=== PATIENT | female | born 1990 | race African-American/Black ===

== ENCOUNTER 2016-12-03 18:03 | Emergency (ER) | payer MEDICAID ==
[~2016-12-03 18:03] MED LIST: MACR100C PO
--- NOTE | 2016-12-03 18:39 | PD ---
HPI Chief Complaint Decreased movement and leaking fluid. Date Seen: Dec 03, 2016 Travel History International Travel<30 Days: No Contact w/Intl Traveler<30Days: No History of Present Illness HPI Patient is a 26 year old at 35-3/7 weeks gestation who presents today for decreased movement and leaking fluid. She has had decreased movement since yesterday and she has only felt the baby move 2-3 times today. She also noticed leaking clear fluid around 5PM and had spotting yesterday. She has had intermittent contractions. She is not feeling well in general today. She is currently being treated for a tooth infection with penicillin 500mg PO QID. She notes a subjective fever today and has been taking Goody powder. She denies any complications with her . Since arriving in the ED, she is feeling more movement. care is with Dr. Rodriguez. History Past Medical History Medical History: Denies Significant Hx Obstetric History Obstetric History at 36 weeks gestation, induced for oligohydramnios, significant for marginal cord insertion at 39 weeks gestation Past Surgical History Surgical History: No Previous Surgery Family History Family History: Negative Social History Alcohol Use: No Tobacco Use: No Substance Abuse: No Allergies-Medications (Allergen,Severity, Reaction): Coded Allergies: No Known Allergies (Unverified , 01/03/16) Home Meds Active Scripts Nitrofurantoin Monohyd Macro (Macrobid)100 Mg Axe518 Mg PO BID #10 CAP Prov:Nupur Helton MD 01/03/16 Review of Systems Except as stated in HPI: all other systems reviewed are Neg General / Constitutional: Fever (subjective), No: Chills Eyes: No: Visual changes HENT: No: Headaches Cardiovascular: No: Chest Pain or Discomfort Respiratory: No: Short of Breath Gastrointestinal: No: Abdominal Pain Genitourinary: Discharge (leaking fluid), Vaginal Bleeding (spotting), No: Dysuria, Pelvic Pain Musculoskeletal: No: Edema Neurologic: No: Headache Psychiatric: No: Substance Abuse Physical Exam Narrative GENERAL: Well-nourished, well-developed patient. SKIN: Warm and dry. HEAD: Normocephalic and atraumatic. EYES: No scleral icterus. No injection or drainage. ENT: No nasal drainage noted. Mucous membranes pink. Airway patent. NECK: Supple, trachea midline. No JVD. CARDIOVASCULAR: Regular rate and rhythm without murmurs, gallops, or rubs. RESPIRATORY: Breath sounds equal bilaterally. No accessory muscle use. ABDOMEN/GI: Abdomen soft, non-tender, bowel sounds present, no rebound, no guarding Gravid to 35 weeks size GENITOURINARY: External Genitalia: intact and normal in appearance Membranes: intact Uterine Contractions: none FHT's: Category: I Baseline: 150 Reactive: + Variability: moderate Decels: none EXTREMITIES: No cyanosis or edema. BACK: Nontender without obvious deformity. No CVA tenderness. NEUROLOGICAL: Awake and alert. Motor and sensory grossly within normal limits. Normal speech. Data Data Vital Signs Reviewed: Yes MDM Medical Record Reviewed: Yes Narrative Course / MDM 26 year old at 35-3/7 weeks gestation. 1. Decreased movement- Category I tracing, reactive strip, reassuring. Positive movement reported in ED. 2. Leaking fluid- amnisure negative 3. Discharge to home, follow-up with Dr. Rodriguez. sdw Dr. Crocker Diagnosis Diagnosis: Primary Impression: Decreased movement affecting management of in third trimester Qualified Code: O36.8130 - Decreased movement affecting management of in third trimester, not applicable or unspecified fetus Additional Impression: 35 weeks gestation of Disposition: DISCHARGE HOME Condition: Stable Gudelia Rogers MD R2 Dec 03, 2016 18:39
[2016-12-03 19:15] VITALS: RESP 18
--- NOTE | 2016-12-03 19:38 | PD ---
History of Present Illness Date Seen: Dec 03, 2016 History of Present Illness This patient is 26-year-old female 35 weeks who presented with decreased movement and leakage of fluid. Her amnio sure is negative. On OB ED and the heart rate tracing is reactive with nice accelerations and good variability. Patient also states that she's feeling the baby move now since she 's been here. The patient was evaluated by the second-year associate vice president in excellent job with her assessment and I agree with her findings. This patient to be discharged home kick counts and see her private OB doctor for further issues Frank Crocker II, MD Dec 03, 2016 19:38
== END 2016-12-03 20:06 | disposition home or self-care (01) ==
LOC: HOBED 18:03
DX: O36.8130 Decreased fetal movements, third trimester, not applicable or unspecified (principal); N89.8 Other specified noninflammatory disorders of vagina; Z3A.35 35 weeks gestation of pregnancy
CPT/HCPCS: 59025; 84112

== ENCOUNTER 2016-12-31 05:45 | Inpatient (IN) | payer MEDICAID ==
[2016-12-31] VITALS (78 sets, daily range): BP systolic 67–145; BP diastolic 30–94; PULSE 70–288; RESP 7–19; TEMP 97.8–99.6
[2016-12-31] MEDS ORDERED: OXYTOCIN 30 UNITS-500ML PREMIX 500 ML ONE (06:36)
[2016-12-31 06:55] LABS: BACTERIA, URINE RARE /hpf; BLOOD, URINE MOD (NEG); COMMENT (UR) CULTURE INDICATED; CULTURE IF INDICATED CULTURE INDICATED; GLUCOSE,URINE NEG (NEG); KETONE, URINE NEG (NEG); MUCUS URINE FEW /lpf (OCC); NITRITE,URINE NEG (NEG); PH, URINE 6.5 (5.0-8.5); SQUAMOUS EPITHELIAL CELL URINE 11 /hpf (0-5); URINE COLOR YELLOW (YELLW/STRAW)
[2016-12-31] MEDS ORDERED: LACTATED RINGER'S 1000 ML IV SCH (07:00)
[2016-12-31] MEDS ORDERED: MINERAL OIL 10 ML VIAL TOPICAL PRN (07:00)
[2016-12-31] MEDS ORDERED: LACTATED RINGER'S 1000 ML BOLUS IV PRN (07:00)
[2016-12-31] MEDS ORDERED: LIDOCAINE HCL 1% 50 ML VIAL INFIL PRN (07:00)
[2016-12-31] MEDS ORDERED: NS 500 ML BOLUS IV PRN (07:00)
[2016-12-31] MEDS ORDERED: LIDOCAINE HCL 1% 50 ML VIAL I-DERMAL PRN (07:00)
[2016-12-31] MEDS ORDERED: ONDANSETRON HCL 4 MG/2 ML VIAL IV PRN (07:00)
[2016-12-31] MEDS ORDERED: OXYTOCIN 30 UNITS 500ML PREMIX IV ONE (07:00)
[2016-12-31] MEDS ORDERED: CITRIC ACID-SODIUM CITRATE LIQ 30 ML UDC PO SCH (07:00)
[2016-12-31] MEDS ORDERED: NS 1000 ML IV PRN (07:00)
[2016-12-31] MEDS ORDERED: OXYTOCIN 30 UNITS/NS 500ML PREMIX IV SCH (07:30)
[2016-12-31 07:35] LABS: AUTOMATED NEUTROPHIL # 7.9 TH/MM3 (1.8-7.7); BASOPHIL % 0.2 % (0.0-2.0); EOSINOPHIL # 0.1 TH/MM3 (0-0.4); EOSINOPHIL % 0.6 % (0.0-4.0); HEMATOCRIT 30.6 % (35.0-46.0); HEMO FLAGS DIFF FINAL; LYMPH % 17.8 % (9.0-44.0); LYMPHOCYTE # 1.9 TH/MM3 (1.0-4.8); MEAN CELL VOLUME 82.2 FL (80.0-100.0); MEAN CORPUSCULAR HEMOGLOBIN 25.9 PG (27.0-34.0); MEAN CORPUSCULAR HGB CONC 31.5 % (32.0-36.0); MONO % 7.6 % (0.0-8.0); NEUT % 73.8 % (16.0-70.0); PLATELET COUNT 331 TH/MM3 (150-450); RED BLOOD COUNT 3.72 MIL/MM3 (4.00-5.30); RED CELL DISTRIBUTION WIDTH 16.6 % (11.6-17.2); WHITE BLOOD COUNT 10.8 TH/MM3 (4.0-11.0)
[2016-12-31] MEDS ORDERED: fentaNYL 2MCG-BUPIV 0.125% INJ 100 ML ONE (08:41)
[2016-12-31] MEDS ORDERED: ePHEDrine/NS 25 MG/5 ML SYR ONE (08:41)
[2016-12-31] MEDS ORDERED: fentaNYL 2MCG-BUPIV 0.125% 100 ML EPIDURAL SCH (09:45)
[2016-12-31] MEDS ORDERED: ePHEDrine/NS 25 MG/5 ML SYR IV PRN (09:45)
[2016-12-31] MEDS ORDERED: DO NOT ADMINISTER ANTICOAGULANTS PRN (09:45)
[2016-12-31] MEDS ORDERED: NO SYSTEM NARCOTICS PRN (09:45)
--- NOTE | 2016-12-31 12:26 | PD.OB.DELI ---
Delivery Date: Dec 31, 2016 Anesthesia: Epidural Episiotomy: None Vaginal Delivery: Normal Presentation: Occiput anterior Nuchal Cord: None Delayed cord clamping (45 sec): Yes Infant: Female One Minute : 9 Five Minute : 9 Weight: 6-8 Placenta: Spontaneous delivery, Intact, 3 vessel cord Laceration: No lacerations Natividad Rodriguez MD Dec 31, 2016 12:25
[2016-12-31] MEDS ORDERED: BENZOCAINE 20% TOPICAL SPRAY 60 ML CAN TOPICAL PRN (12:30)
[2016-12-31] MEDS ORDERED: ONDANSETRON ODT 4 MG TAB PO PRN (12:30)
[2016-12-31] MEDS ORDERED: DOCUSATE SODIUM 50 MG/SENNA 8.6 MG TAB PO PRN (12:30)
[2016-12-31] MEDS ORDERED: WITCH HAZEL 50%/GLYCERIN 12.5% 40 PAD JAR TOPICAL PRN (12:30)
[2016-12-31] MEDS ORDERED: SODIUM CHLORIDE 0.9% FLUSH 10 ML FLUSH IV FLUSH PRN (12:30)
[2016-12-31] MEDS ORDERED: oxyCODONE/ACETAMINOPHEN 5 MG/325 MG TAB PO PRN ×2 (12:30)
[2016-12-31] MEDS ORDERED: ZOLPIDEM TARTRATE 5 MG TAB PO PRN (12:30)
[2016-12-31] MEDS ORDERED: ALUMINUM/MAGNESIUM/SIMETH 30 ML CUP PO PRN (12:30)
[2016-12-31] MEDS ORDERED: MEASLES, MUMPS, RUBELLA VACCINE 0.5 ML VIAL SQ ONE (16:00)
[2016-12-31] MEDS ORDERED: DIPHTH/TETANUS/ACEL PERTUSSIS (BOOSTER) 0.5 ML VIAL/PFS IM ONE (16:00)
[2016-12-31] MEDS: IBUPROFEN 600 MG TAB PO PRN (20:50)
[2016-12-31] MEDS: ACETAMINOPHEN 325 MG TAB PO PRN (20:50)
[2016-12-31] MEDS ORDERED: SODIUM CHLORIDE 0.9% FLUSH 10 ML FLUSH IV FLUSH SCH (21:00)
[2017-01-01] MEDS: IBUPROFEN 600 MG TAB PO PRN (05:22)
[2017-01-01] MEDS: ACETAMINOPHEN 325 MG TAB PO PRN (05:23)
[2017-01-01 07:45] VITALS: BP 108/72; PULSE 89; RESP 18; TEMP 97.9
--- NOTE | 2017-01-01 15:48 | HHI.DCPOC ---
Discharge Care Plan Your Health Problems Are: Vaginal delivery Report Symptoms to Your Doctor -Temperature above 100.5 degrees -Redness, of incision or excessive or foul smelling drainage -Unusual pain or calf pain -Increased vaginal bleeding -Painful or difficulty urinating -Feelings of extreme sadness or anxiety after 2 weeks Goals to Promote Your Health * To prevent worsening of your condition and complications * To maintain your health at the optimal level Directions to Meet Your Goals Take your medications as prescribed Follow your dietary instruction Follow activity as directed Ensure plenty of rest for recovery Drink fluids for hydration Keep your appointments as scheduled Take your immunizations and boosters as scheduled If your symptoms worsen call your PCP, if no PCP go to Urgent Care Center or Emergency Room Smoking is Dangerous to Your Health. Avoid second hand smoke Call the 24-hour crisis hotline for domestic abuse at Natividad Rodriguez MD Jan 01, 2017 15:48
--- NOTE | 2017-01-01 15:49 | HHI.DS ---
Admission Date Dec 31, 2016 at 05:45 Discharge Date: Jan 01, 2017 Admitting Diagnosis induction at 39 wks Diagnosis: Delivery Date: Dec 31, 2016 Vaginal Delivery: Normal Infant: Female Pt Condition on Discharge: Good Discharge Disposition: Discharge Home Discharge Instructions Diet Instructions: As Tolerated, No Restrictions Activities You Can Perform: Pelvic Rest Natividad Rodriguez MD Jan 01, 2017 15:49
== END 2017-01-01 18:10 | disposition home or self-care (01) | DRG 775 ==
LOC: H2EA 05:45 → H1EA 15:17
PROVIDERS: ADMIT Obstetrics & Gynecology; ATTEND Obstetrics & Gynecology
PROC: 10E0XZZ Delivery of Products of Conception, External Approach (ICD-10-PCS; principal; 2016-12-31)
PROC: 00HU33Z Insertion of Infusion Device into Spinal Canal, Percutaneous Approach (ICD-10-PCS; 2016-12-31)
PROC: 3E0R3CZ (ICD-10-PCS; 2016-12-31)
DX: O80 Encounter for full-term uncomplicated delivery (principal); Z37.0 Single live birth; Z3A.39 39 weeks gestation of pregnancy
CPT/HCPCS: 59025; 81001; 85025; 87086; J2590; J3010; J7120

== ENCOUNTER 2017-06-19 13:17 | Emergency (ER) | payer MEDICAID ==
[~2017-06-19] VITALS: Ht 170.2 cm; Wt 92.0 kg
[2017-06-19 13:22] VITALS: BP 132/81; PULSE 81; RESP 16; TEMP 99.4; O2SAT 95
--- NOTE | 2017-06-19 13:48 | PD ---
HPI Chief Complaint: ENT Complaint Time Seen by Provider: 13:41 Travel History International Travel<30 days: No Contact w/Intl Traveler<30days: No Traveled to known affect area: No History of Present Illness HPI 27-year-old female presents to emergency Department with complaint of waking up with her right eye crusted shut this morning, nasal congestion and fever of 103.0. Denies ear pain. Reports throat irritation, but denies throat pain. Reports body aches. Denies vomiting. Reports occasional cough. Denies chest tightness or shortness of breath. Taking Tylenol for symptoms. Symptoms are mild in severity. [facility] is primary care provider. Denies significant past medical history. No known allergies. Has no other medical complaints. No other modifying factors or associated signs and symptoms. PFSH Past Medical History LMP: 06/10/17 : 3 Para: 0 Miscarriage: 0 : 1 Social History Alcohol Use: No Tobacco Use: No Substance Use: No Allergies-Medications (Allergen,Severity, Reaction): Coded Allergies: No Known Allergies (Unverified Adverse Reaction, Unknown, 06/19/17) No Known Allergies (Unverified , 06/19/17) Reported Meds & Prescriptions Reported Meds & Active Scripts Active Ibuprofen 800 Mg Tab 800 Mg PO Q6HR PRN Polytrim Opth Drops (Polymyxin/Trimethoprim Sulfate) 10,000-0.1 Unit/Ml-% Soln 2 Drop RIGHT EYE Q6HR 7 Days Review of Systems Except as stated in HPI: all other systems reviewed are Neg Physical Exam Narrative GENERAL: Well-nourished, well-developed black female patient, in no acute distress; low-grade fever 99.4, nontoxic-appearing SKIN: Warm and dry. No rash. HEAD: Atraumatic. Normocephalic. EYES: Pupils equal and round. No scleral icterus. No injection or drainage. PERRLA. EOMI. No orbital tenderness or cellulitis to the right eye. Dried crusted drainage noted to the right upper and lower eyelids; normal scleral erythema; mild lid edema; clear drainage. ENT: Mucosa pink and moist. No erythema or exudates. No uvular edema. No uvular , palatal, or tonsillar deviation. Airway patent. EARS: Bilateral pinnae and external canals appear within normal limits. Bilateral tympanic membranes without erythema, dullness or perforation. NECK: Trachea midline. No lymphadenopathy. CARDIOVASCULAR: Regular rate and rhythm. No murmur appreciated. RESPIRATORY: No accessory muscle use. Clear to auscultation. Breath sounds equal bilaterally. No retractions or tachypnea. GASTROINTESTINAL: Abdomen soft, non-tender, nondistended. Hepatic and splenic margins not palpable. Bowel sounds are active 4 quadrants. MUSCULOSKELETAL: No obvious deformities. No clubbing. No cyanosis. No edema. NEUROLOGICAL: Awake and alert. Oriented 3. No obvious cranial nerve deficits. Motor grossly within normal limits. Normal speech. Moves all extremities. 5/5 strength to all extremities. PSYCHIATRIC: Appropriate mood and affect; insight and judgment normal. Data Data Last Documented VS Vital Signs Date Time Temp Pulse Resp B/P (MAP) Pulse Ox O2 Delivery O2 Flow Rate FiO2 06/19/17 13:22 99.4 81 16 132/81 (98) 95 Orders Orders Ibuprofen (Motrin) (06/19/17 14:00) Influenzae A/B Antigen (06/19/17 13:48) Ed Discharge Order (06/19/17 14:34) [facility] Medical Decision Making Medical Screen Exam Complete: Yes Emergency Medical Condition: Yes Medical Record Reviewed: Yes Differential Diagnosis Influenza, conjunctivitis, viral illness Narrative Course 27-year-old female with cold/flu symptoms that she woke up with this morning. Symptoms of conjunctivitis to the right eye. Denies sore throat. MAXIMUM TEMPERATURE 103.0. Low-grade fever 99.4 and nontoxic-appearing in ER. Influenza and ibuprofen ordered. 1434: Influenza negative. Discussed viral illness and symptomatic management. Polytrim eyedrops prescribed for home. Instructed patient to follow up with primary care provider. Patient verbalizes understanding and agreement with treatment plan. Patient is medically cleared and stable for discharge. Discussed reasons to return to the emergency department. Patient agrees with treatment plan. The patients vital signs are stable and the patient is stable for outpatient follow-up and treatment. Patient discharged home, stable and in no acute distress. Diagnosis Primary Impression: Conjunctivitis Qualified Codes: H10.9 - Unspecified conjunctivitis Additional Impression: Viral illness Referrals: Primary Care Physician Patient Instructions: Conjunctivitis (ED), General Instructions Departure Forms: Tests/Procedures, Work Release Enter return to work date: Jun 21, 2017 Additional Instructions: Ibuprofen or Tylenol as directed and as needed to reduce fever; may alternate ibuprofen and Tylenol as needed every 3 hours to minimize fever [id number] cold/flu medications as directed and as needed for symptom management Get plenty of sleep/rest Drink plenty of fluids to prevent dehydration; such as Gatorade, Powerade, Pedialyte [place] diet to encourage nutrition such as crackers, fruit, applesauce, toast, soup etc. Use an air humidifier/turn off ceiling fans Follow-up with your primary care provider within 1 day Return immediately to the emergency department with worsening of symptoms Conjunctivitis is contagious Use antibiotic eye drops as prescribed Apply warm or cool compresses to both eyes for a few minutes several times daily to minimize irritation Avoid triggers, such as allergens, that may irritate your eyes Wash your hands frequently Do not share washcloths, towels, pillows, or any other material that has touched your eyes with any other household members Med/Other Pt SpecificInfo: Prescription(s) given Scripts Ibuprofen (Ibuprofen) 800 Mg Tab 800 MG PO Q6HR Y for PAIN, #20 TAB 0 Refills Prov: Randee Malcolm 06/19/17 Polymyxin B-Trimethoprim Opth Drops (Polytrim Opth Drops) 10,000-0.1 Unit/Ml-% Soln 2 DROP RIGHT EYE Q6HR for Mgmt Bacterial Infection for 7 Days, #1 BOTTLE 0 Refills Prov: Randee Malcolm 06/19/17 Disposition: 01 DISCHARGE HOME Condition: Stable Randee Malcolm Jun 19, 2017 13:48
[2017-06-19] MEDS ORDERED: IBUP1TAB7 PO (13:59)
[2017-06-19] MEDS ORDERED: POLY10O RIGHT EYE (13:59)
[2017-06-19] MEDS ORDERED: IBUPROFEN 800 MG TAB PO ONE (14:00)
== END 2017-06-19 14:45 | disposition home or self-care (01) ==
LOC: NEPD 13:17
DX: H10.9 Unspecified conjunctivitis (principal); B34.9 Viral infection, unspecified
CPT/HCPCS: 87804; 99283